=== PATIENT | female | born 1995 | race African-American/Black ===

== ENCOUNTER 2017-10-07 20:33 | Emergency (ER) | payer MEDICAID ==
[~2017-10-07] VITALS: Ht 165.1 cm; Wt 104.0 kg
[~2017-10-07 20:33] MED LIST: FERR-63 PO; PREN-127 PO
[2017-10-08 01:24] LABS: BASOPHILS % 1.4 % (0.0-2.0); EOSINOPHILS % 1.1 % (0.0-5.0); HEMATOCRIT. 35.6 % (36.0-48.0); HEMOGLOBIN. 11.3 g/dL (12.0-16.0); LYMPHOCYTES % 21.4 % (20.0-50.0); MEAN CORPUSCULAR HEMOGLOBIN 22.4 pg (28.0-32.0); MEAN CORPUSCULAR VOLUME 70.9 fL (81.0-99.0); MEAN PLATELET VOLUME 10.6 fl (7.4-10.4); NEUTROPHILS % 69.1 % (40.0-76.0); PLATELET 177 x1000/uL (130-400); RED BLOOD CELL COUNT 5.02 mill/uL (4.2-5.4)
[2017-10-08 01:29] LABS: CHLORIDE 107 mEq/L (98-107)
[2017-10-08 01:34] LABS: D-DIMER < 0.19 mg/L FEU (<0.50); INR 1.1; PROTHROMBIN TIME 10.7 sec (9.1-11.1)
[2017-10-08 01:39] LABS: T4 FREE 1.12 ng/dL (0.76-1.46)
[2017-10-08 03:02] VITALS: BP 125/70
== END 2017-10-08 02:41 | disposition home or self-care (01) ==
LOC: ER 21:22 → CANBEDREQ 10-08 03:48
DX: R00.2 Palpitations (principal); Z88.2 Allergy status to sulfonamides; Z88.3 Allergy status to other anti-infective agents
CPT/HCPCS: 36415; 71045; 80053; 81025; 84439; 84443; 84484; 85025; 85379; 85610; 85730; 93005; 99285